=== PATIENT | female | born 1975 | race Caucasian/White ===

== ENCOUNTER 2020-03-29 18:47 | Emergency (ER) | payer MEDICAID ==
[~2020-03-29] VITALS: Ht 177.8 cm; Wt 59.1 kg
[~2020-03-29 18:47] MED LIST: CETI10CA PO; SUMA25TA35 PO
[2020-03-29 19:14] VITALS: BP 159/100
== END 2020-03-29 20:34 | disposition home or self-care (01) ==
LOC: ER 18:48
DX: R05 Cough (principal); Z20.828 Contact with and (suspected) exposure to other viral communicable diseases; Z90.13 Acquired absence of bilateral breasts and nipples; Z85.3 Personal history of malignant neoplasm of breast; Z88.8 Allergy status to other drugs, medicaments and biological substances; Z79.899 Other long term (current) drug therapy
CPT/HCPCS: 36415; 99282; 99283

== ENCOUNTER 2020-12-07 11:07 | Day surgery (SDC) | payer MEDICAID ==
[~2020-12-07] VITALS: Ht 177.8 cm; Wt 56.5 kg
[2020-12-07] MEDS ORDERED: RIZA10TA27 PO (11:49)
[2020-12-07] MEDS ORDERED: CHOL20004 PO (11:49)
[2020-12-07] MEDS ORDERED: ANAS1TAB10 PO (11:49)
[2020-12-07] MEDS ORDERED: ESCI20TA39 PO (11:49)
[2020-12-07 12:00] VITALS: BP 109/77
[2020-12-07] MEDS ORDERED: ceFAZolin/D5W- 1GM premix 50 ML IV SCH (12:40)
[2020-12-07] MEDS ORDERED: midazolam 1 mg/ML 2ml injection ONE ×3 (12:42→13:31)
[2020-12-07] MEDS ORDERED: fentaNYL/PF 50MCG/1 ML 2ML syringe ONE ×2 (12:42→13:20)
[2020-12-07] MEDS ORDERED: LIDOcaine 1%/PF 5ML 10 MG/ML VIAL ONE (12:42)
[2020-12-07 14:00] VITALS: BP 128/78
[2020-12-07 14:15] VITALS: BP 125/72
[2020-12-07 14:30] VITALS: BP 115/49
[2020-12-07 14:45] VITALS: BP 120/76
== END 2020-12-07 15:07 | disposition home or self-care (01) ==
LOC: SSTAY O 11:07
PROVIDERS: ATTEND Radiology Vascular & Interventional Radiology
DX: Z45.2 Encounter for adjustment and management of vascular access device (principal); Z85.3 Personal history of malignant neoplasm of breast; Z20.822 Contact with and (suspected) exposure to COVID-19; Z88.8 Allergy status to other drugs, medicaments and biological substances; Z88.5 Allergy status to narcotic agent; Z79.899 Other long term (current) drug therapy
CPT/HCPCS: 36415; 36590; 99152; 99153; J2250; J3010; U0003

== ENCOUNTER 2021-10-02 10:37 | Emergency (ER) | payer MEDICAID ==
[~2021-10-02] VITALS: Ht 172.7 cm; Wt 65.0 kg
[~2021-10-02 10:37] MED LIST changes: +ANAS1TAB10 PO; +CHOL20004 PO; +ESCI20TA39 PO; +RIZA10TA27 PO
[2021-10-02 10:47] VITALS: BP 157/84
[2021-10-02 11:45] LABS: BASOPHILS % (AUTO) 0.5 % (0-1); EOSINOPHILS % (AUTO) 0.8 % (0-6); HEMATOCRIT 42.9 % (35.0-45.0); HEMOGLOBIN 14.7 g/dl (12.0-16.0); LYMPHOCYTES # (AUTO) 1.2 X10'3 (1.1-4.8); LYMPHOCYTES % (AUTO) 23.9 % (21-51); MEAN CORPUSCULAR HEMOGLOBIN 31.2 PG (27.0-31.0); MEAN CORPUSCULAR HGB CONC 34.1 g/dL (33.0-36.5); MEAN CORPUSCULAR VOLUME 91.5 FL (78-98); MEAN PLATELET VOLUME 8.1 FL (7.4-10.4); MONOCYTES # (AUTO) 0.4 X10'3 (0-0.9); MONOCYTES % (AUTO) 7.1 % (2-12); NEUTROPHILS # (AUTO) 3.4 X10'3 (1.8-7.7); NEUTROPHILS % (AUTO) 67.7 % (42-75); PLATELET COUNT 216 X10'3 (140-440); RED BLOOD COUNT 4.69 X10'6 (4.20-5.60); RED CELL DISTRIBUTION WIDTH 12.7 % (11.5-14.5)
[2021-10-02 12:01] LABS: ALANINE AMINOTRANSFERASE 19 U/L (12-78); ALBUMIN 4.3 G/DL (3.4-5.0); ALBUMIN/GLOBULIN RATIO 1.2 (1.1-1.5); ALKALINE PHOSPHATASE 90 IU/L (46-116); ANION GAP 10 (8-16); ASPARTATE AMINO TRANSFERASE 15 U/L (10-37); BILIRUBIN,TOTAL 0.9 MG/DL (0.1-1.0); BLOOD UREA NITROGEN 9 MG/DL (7-18); BUN/CREATININE RATIO 11.5 (6.6-38.0); CALCIUM 9.3 MG/DL (8.5-10.1); CHLORIDE 105 MMOL/L (99-107); CREATININE 0.78 MG/DL (0.40-0.90); GLUCOSE 117 MG/DL (70-104); SODIUM 143 MMOL/L (135-145); TOTAL CARBON DIOXIDE 28.5 MMOL/L (24-32); TOTAL PROTEIN 7.8 G/DL (6.4-8.2); eGFR 80 ML/MIN
== END 2021-10-02 14:21 | disposition home or self-care (01) ==
LOC: ER 10:37
DX: R00.2 Palpitations (principal); R06.02 Shortness of breath; R11.0 Nausea; R07.89 Other chest pain; Z85.3 Personal history of malignant neoplasm of breast; Z90.13 Acquired absence of bilateral breasts and nipples; Z88.8 Allergy status to other drugs, medicaments and biological substances; Z79.899 Other long term (current) drug therapy
CPT/HCPCS: 36415; 71045; 80053; 83880; 84484; 85025; 93005; 99285